=== PATIENT | female | born 1965 | race Caucasian/White ===

== ENCOUNTER → 2024-03-14 | Outpatient (CLI) | payer BC, MEDICAID, SELFPAY ==
--- NOTE | 2024-03-14 09:00 | XR_ITS ---
Examination: Breast ultrasound complete, bilateral Date and time of exam: March 14, 2024 0926 hours INDICATIONS: Mammogram January 25, 2024 focal nodule with breast biopsy marker inner upper right breast, microcalcifications in linear distribution upper outer right breast, microcalcifications upper outer left breast posterior depth Technique: Real-time grayscale ultrasonographic imaging bilateral breasts, including all 4 quadrants as well as nipple retroareolar and axillary regions. Findings: Sonographic images right and left breast demonstrated no cystic or solid masses IMPRESSION: BI-RADS Category 2: Benign findings
--- NOTE | 2024-03-14 10:00 | XR_ITS ---
Examination: Diagnostic digital mammography, bilateral Computer aided detection 3-D breast Tomosynthesis, bilateral Date and time of exam: March 14, 2024 0941 hours INDICATIONS: Mammogram January 25, 2024 grouped microcalcifications upper outer bilateral breasts Technique: Nonmagnified MLO, CC views of the breasts to been obtained, reconstructed from 3-D Tomosynthesis images. R2 computer aided detection program utilized for evaluation of suspicious masses and/or abnormal calcifications. 3-D Tomosynthesis images obtained. Findings: The breasts are heterogeneously dense, which may obscure small masses Probably benign microcalcifications left breast Probably benign microcalcifications right breast No suspicious masses Impression: BI-RADS Category 3: Probably benign findings 6 month bilateral mammography follow-up is needed.
== END | disposition home or self-care (01) ==
PROVIDERS: PCP Physician Assistant; Referring Provider Physician Assistant; Visit Provider Physician Assistant
DX: R92.333 Mammographic heterogeneous density, bilateral breasts (principal)
CPT/HCPCS: 76641; 77062; 77066; G0279

== ENCOUNTER → 2024-12-19 | Outpatient (CLI) | payer BC, MEDICAID, SELFPAY ==
--- NOTE | 2024-12-19 09:45 | XR_ITS ---
Examination: Diagnostic digital mammography, bilateral Computer aided detection 3-D breast Tomosynthesis, bilateral Date and time of exam: December 19, 2024, 0950 hours INDICATIONS: Mammogram March 14, 2024 bilateral grouped microcalcifications Technique: Nonmagnified MLO, CC views of the breasts to been obtained, reconstructed from 3-D Tomosynthesis images. R2 computer aided detection program utilized for evaluation of suspicious masses and/or abnormal calcifications. 3-D Tomosynthesis images obtained. Findings: The breasts are heterogeneously dense, which may obscure small masses Suspicious focus of grouped microcalcification is depicted upper outer left breast on the spot compression views Impression: BI-RADS Category 4: Suspicious for malignancy Suspicious grouped microcalcifications are confirmed upper outer left breast on the spot compression view, biopsy is needed to exclude breast carcinoma, these calcifications are amenable to stereotactic breast biopsy.
== END | disposition home or self-care (01) ==
LOC: CDIM 09:40
PROVIDERS: PCP Physician Assistant; Referring Provider Physician Assistant; Visit Provider Physician Assistant
DX: R92.343 Mammographic extreme density, bilateral breasts (principal); R92.0 Mammographic microcalcification found on diagnostic imaging of breast
CPT/HCPCS: 77062; 77066; G0279

== ENCOUNTER → 2025-03-11 | Outpatient (CLI) | payer BC, MEDICAID, SELFPAY ==
[2025-03-09 12:06] LABS: Basophils # (Auto) 0.1 Thou/mm3 (0.0-0.2); Basophils % (Auto) 1 % (0-2.5); Eosinophils # (Auto) 0.2 Thou/mm3 (0.0-0.5); Eosinophils % (Auto) 2 % (0-10); Hematocrit 42.2 % (36.0-46.0); Hemoglobin 13.4 g/dL (12.0-16.0); Immature Granulocytes Auto 0.02 Thou/mm3 (0.00-0.00); Lymphocytes # (Auto) 3.1 Thou/mm3 (1.0-4.8); Lymphocytes % (Auto) 42 % (10-50); Mean Corpuscular HGB Conc 31.8 g/dl (31.0-37.0); Mean Corpuscular Hemoglobin 27.8 pg (25.0-35.0); Mean Corpuscular Volume 88 fL (80-100); Monocytes # (Auto) 0.5 Thou/mm3 (0.0-0.8); Monocytes % (Auto) 7 % (0-12); Neutrophils # (Auto) 3.5 Thou/mm3 (1.8-7.7); Neutrophils % (Auto) 48 % (37-80); Nucleated Red Blood Cell # 0.00 Thou/mm3 (0.00-0.00); Nucleated Red Blood Cell % 0 /100 WBC (0); Platelet Count 183 Thou/mm3 (140-440); RDW Standard Deviation 42.3 fL (36.4-46.3); Red Blood Count 4.82 Miln/mm3 (4.00-5.20); White Blood Count 7.3 Thou/mm3 (3.6-11.0)
[2025-03-09 12:32] LABS: INR 1.0 (0.9-1.3); Partial Thromboplastin Time 27.0 Seconds (22.0-36.0); Prothrombin Time 10.4 Seconds (9.0-12.2)
--- NOTE | 2025-03-11 09:00 | XR_ITS ---
Examination: Stereotactic guided vacuum assisted left breast biopsy with clip placement Specimen radiograph Date and time of exam: March 11, 2025, 1027 hours INDICATIONS: BI-RADS 4 suspicious microcalcifications upper outer left breast on mammogram 12/19/2024 Timeout performed, documenting correct patient, order, referring physician, patient's site and reason for procedure, allergies to medications Informed consent provided. Time out performed Technique: The lesion left breast was localized with a stereotactic apparatus. Local anesthesia was obtained after prepping the skin at the entrance site and applying sterile drape Maximum sterile barrier technique. 5 core biopsies were then obtained, vacuum assisted, stereotactically guided, at the lesion site. Specimens appear adequate. Stereotactic breast marker was introduced at the lesion site Estimated blood loss 2 cc. Patient tolerated the procedure well and appeared in satisfactory and stable condition at completion of the procedure Pathology report to follow Impression: Successful stereotactic breast biopsy as described above. Specimen radiograph contains the biopsied suspicious microcalcifications.
== END | disposition home or self-care (01) ==
LOC: CDIM 03-12 07:51 → SIRX 03-20 10:27
PROVIDERS: Radiology Diagnostic Radiology; PCP Physician Assistant; Referring Provider Physician Assistant; Visit Provider Physician Assistant
DX: D24.2 Benign neoplasm of left breast (principal); N63.20 Unspecified lump in the left breast, unspecified quadrant; R92.0 Mammographic microcalcification found on diagnostic imaging of breast
CPT/HCPCS: 19081; 36415; 85025; 85610; 85730; A4648; A4649